=== PATIENT | male | born 1940 | race Caucasian/White ===

== ENCOUNTER 2017-04-27 14:45 | Emergency (ER) | payer MEDICARE, MEDICAID ==
[2017-04-27 15:36] LABS: CHLORIDE,CL 96 mmol/L (98-107); SODIUM,NA 134 mmol/L (136-145)
--- NOTE | 2017-04-27 16:02 | EDM.PDOC ---
ED HPI GENERAL MEDICAL PROBLEM - General Chief Complaint: Respiratory Problem Stated Complaint: SOB, low O2 Time Seen by Provider: 04/27/17 15:57 Source of Information: Reports: Patient, Assisted Records History Limitations: Reports: No Limitations - History of Present Illness INITIAL COMMENTS - FREE TEXT/NARRATIVE: Patient is a 76-year-old who presents to the emergency room with shortness of breath low saturations generalized aches and pains productive cough feels dry with cotton mouth. Patient is known to have a mass in his right hilum [facility] called and asked what his plan was apparently patient has not been presented to tumor board therefore I will send him up there to the service of Dr. Lozano for admission and evaluation. Onset: Gradual Duration: Day(s):, Getting Worse Location: Reports: Chest Quality: Reports: Ache, Dull Severity: Severe Improves with: Reports: Other (Oxygen) Worsens with: Reports: Other Context: Reports: Other (Lung mass, cancer) Associated Symptoms: Reports: cough w sputum, Loss of Appetite, Shortness of Breath, Weakness - Related Data Allergies Allergy/AdvReac Type Severity Reaction Status Date / Time No Known Allergies Allergy Verified 04/27/17 14:52 Home Meds: Home Meds Budesonide/Formoterol Fumarate [Symbicort 160-4.5 Mcg Inhaler] 2 puff IH BID 01/02 [History] Cholecalciferol (Vitamin D3) [Vitamin D3] 2,000 unit PO DAILY 04/27/17 [History] Ipratropium/Albuterol Sulfate [Iprat-Albut 0.5-3(2.5) mg/3 ml] 3 ml IH Q4HR PRN 04/27/17 [History] Ipratropium/Albuterol Sulfate [Iprat-Albut 0.5-3(2.5) mg/3 ml] 3 ml IH TID 04/27 [History] Multivit &Minerals/Ferrous Fum [Multivitamin Liquid] 30 ml PO PCDINNER 04/27/17 [History] Tiotropium [Spiriva] 18 mcg INH DAILY 04/27/17 [History] Social & Family History - Tobacco Use Smoking Status *Q: Former Smoker Years of Tobacco use: 40 Packs/Tins Daily: 2 Used Tobacco, but Quit: Yes Month Tobacco Last Used: 1 - Caffeine Use Caffeine Use: Reports: None - Recreational Drug Use Recreational Drug Use: No ED ROS GENERAL - Review of Systems Review Of Systems: See Below ED EXAM, GENERAL - Physical Exam Exam: See Below Course - Vital Signs Last Recorded V/S: Last Vital Signs Temp 97.8 F 04/27/17 14:46 Pulse 126 H 04/27/17 14:46 Resp 24 H 04/27/17 14:46 BP 139/87 04/27/17 14:46 Pulse Ox 80 L 04/27/17 14:46 - Orders/Labs/Meds Orders: Active Orders 24 hr Category Date Time Status RT Aerosol Therapy [RC] ASDIRECTED Care 04/27/17 16:12 Active Chest 2V [CR] Stat Exams 04/27/17 15:02 Taken CULTURE SPUTUM + SMEAR [RM] Stat Lab 04/27/17 15:00 Received Labs: Laboratory Tests 04/27/17 04/27/17 Range/Units 15:19 15:19 WBC 12.8 H (4.0-10.2) K/uL RBC 4.38 (4.33-5.41) M/uL Hgb 13.3 (13.1-16.8) g/dL Hct 39.8 (39.0-49.0) % MCV 90.9 (84.0-98.0) fL MCH 30.4 (28.2-33.3) pg MCHC 33.4 (31.7-36.0) g/dL RDW 13.3 (11.2-14.1) % Plt Count 580 H (150-350) K/uL Neut % (Auto) 88.8 H (45.0-80.0) % Lymph % (Auto) 3.5 L (10.0-50.0) % [place] % (Auto) 7.6 (2.0-14.0) % Eos % (Auto) 0.0 (0.0-5.0) % Baso % (Auto) 0.1 (0.0-2.0) % Neut # (Auto) 11.38 H (1.40-7.00) K/uL Lymph # (Auto) 0.45 L (0.50-3.50) K/uL [place] # (Auto) 0.98 (0.00-1.00) K/uL Eos # (Auto) 0.00 (0.00-0.50) K/uL Baso # (Auto) 0.01 (0.00-0.20) K/uL Sodium 134 L (136-145) mmol/L Potassium 4.8 (3.5-5.1) mmol/L Chloride 96 L (98-107) mmol/L Carbon Dioxide 28.3 (21.0-32.0) mmol/L BUN 21 H (7-18) mg/dL Creatinine 0.66 (0.51-1.17) mg/dL Est Cr Clr Drug Dosing 49.91 mL/min Estimated GFR (MDRD) > 60 mL/min Glucose 113 H (74-106) mg/dL Calcium 10.0 (8.5-10.1) mg/dL Total Bilirubin 0.4 (0.2-1.0) mg/dL AST 12 L (15-37) U/L ALT 12 (12-78) U/L Alkaline Phosphatase 66 (46-116) IU/L Total Protein 8.2 (6.4-8.2) g/dL Albumin 3.0 L (3.4-5.0) g/dL Meds: Medications Discontinued Medications Generic Name Dose Route Start Last Admin Trade Name Freq PRN Reason Stop Dose Admin Albuterol/Ipratropium 3 ml 04/27/17 16:11 Duoneb 3.0-0.5 Mg/3 Ml NEB 04/27/17 16:12 ONETIME ONE Departure - Departure Time of Disposition: 16:31 Disposition: DC/Tfer to Acute Hospital 02 Condition: Poor Clinical Impression: Lung cancer, hilus Qualifiers: Laterality: right Qualified Code(s): C34.01 - Malignant neoplasm of right main bronchus - Discharge Information Forms: ED Department Discharge Care Plan Goals: Patient was discussed with operations chief at the [facility] will transfer to [facility] at their request Dr. Blake santamaria septic transfer - My Orders Last 24 Hours: My Active Orders 04/27/17 15:00 CULTURE SPUTUM + SMEAR [RM] Stat 04/27/17 15:02 Chest 2V [CR] Stat 04/27/17 16:12 RT Aerosol Therapy [RC] ASDIRECTED - Assessment/Plan Last 24 Hours: My Active Orders 04/27/17 15:00 CULTURE SPUTUM + SMEAR [RM] Stat 04/27/17 15:02 Chest 2V [CR] Stat 04/27/17 16:12 RT Aerosol Therapy [RC] ASDIRECTED
[2017-04-27] MEDS ORDERED: Albuterol/Ipratropium 3.0-0.5 MG/3 ML Neb Soln NEB ONE (16:11)
[2017-04-27] MEDS ORDERED: Sodium Chloride 0.9% 10 ML Syringe FLUSH PRN (16:34)
[2017-04-27] MEDS ORDERED: Sodium Chloride 0.9% 1,000 ML IV SCH (16:45)
== END 2017-04-27 17:15 ==
LOC: LL.ED 14:45
DX: C34.01 Malignant neoplasm of right main bronchus (principal); Z87.891 Personal history of nicotine dependence; Z79.899 Other long term (current) drug therapy
CPT/HCPCS: 36415; 71046; 80053; 85025; 87070; 87077; 87205; 87804; 94640; 99285; J7030; 87186; 99284